=== PATIENT | male | born 1970 | race Caucasian/White ===

== ENCOUNTER 2021-04-12 10:46 | Day surgery (SDC) | payer MEDICAID, SELFPAY ==
--- NOTE | 2021-04-11 12:36 | HO.ANESPROP2 ---
Documented by User: Gwen Santizo NP 04/11/21 12:36 HPI - Anesthesia Eval Consult details Narrative: 51yo M for Upper Endoscopy [facility] Past Medical History Medical History Abnormal LFTs Anemia Celiac disease Surgical History Surgical History Hx of appendectomy Social History Social History Patient Tobacco Use Status: Former Tobacco user Use of substances other than those prescribed or required for medical reasons: No Are you DNR?: No Advance Directives: No Advance Directives Information Provided: Yes How much weight loss: 34pounds or more Meds Allergies Allergy/AdvReac Type Severity Reaction Status Date / Time No Known Allergies Allergy Mild NONE Unverified 01/14/20 14:42 Home Medications Medication Instructions Recorded Confirmed Last Taken Type No Known Home Meds 04/12/21 04/12/21 Unknown History Exam Exam Date and Time: April 11, 2021 1236 Assessment and Plan Assessment Anesthesia Assessment: Chart Reviewed Documented by User: Sung Gerardo 04/12/21 12:00 [facility] Past Medical History Medical History Abnormal LFTs Anemia Celiac disease Functional capacity: independent ambulation Family History Family history of problems with anesthesia: Yes (Father had possible delayed emergence , but patient unsure . ) Surgical History Surgical History Hx of appendectomy History of Problems with Anesthesia: No Social History Social History Patient Tobacco Use Status: Former Tobacco user Use of substances other than those prescribed or required for medical reasons: No Are you DNR?: No Advance Directives: No Advance Directives Information Provided: Yes How much weight loss: 34pounds or more Meds Allergies Allergy/AdvReac Type Severity Reaction Status Date / Time No Known Allergies Allergy Mild NONE Unverified 01/14/20 14:42 Home Medications Medication Instructions Recorded Confirmed Last Taken Type No Known Home Meds 04/12/21 04/12/21 Unknown History Exam Airway Mallampati Class: II TM Dist: >3cm Neck ROM: Full Loose/Missing/Broken Teeth: Yes (Chipped , hardware , missing . Poor dentition . ) Heart: rrr Lungs: bl breath sounds Assessment and Plan Final Anesthetic Review Family History of Problems with Anesthesia: Yes (Father had possible delayed emergence , but patient unsure . ) History of Problems with Anesthesia: No NPO: Yes ASA Class: II Final Preanesthetic Review: Meds/Allgs Chart Reviewed and Anes Risks/Benef Reviewed Patient Risk: Intermediate Procedure Risk: Intermediate Anesthetic Plan Anesthetic Plan: MAC: Disposition: Standard PACU
[2021-04-12 11:13] VITALS: BP 104/64; PULSE 81; RESP 16; TEMP 36.1; O2SAT 99; BMI 20.9
[2021-04-12] MEDS: Lactated Ringers 1,000 ML 100 ML IVCONT (11:39)
--- NOTE | 2021-04-12 12:48 | P.BOP_ITS ---
Brief Operative Note Date of Service: 04/12/21 Pre-op diagnosis: Suspected celiac disease Post-op diagnosis: other (Same, Small hiatal hernia) Procedure: EGD with biopsies Surgeon: Rigoberto Mireles Anesthesia: MAC Was an Developmental Psychologist used for this Procedure?: No Estimated blood loss (mL): 2.0 Pathology: other (A. Descending duodenum) Condition: stable Disposition: PACU
[2021-04-12 12:50] VITALS: BP 101/59; PULSE 103; RESP 20; TEMP 36.4; O2SAT 99
[2021-04-12 13:05] VITALS: BP 110/62; PULSE 76; RESP 18; TEMP 36.4; O2SAT 99
--- NOTE | 2021-04-12 14:43 | OP_ITS ---
SURGEON: Rigoberto Mireles MD INDICATIONS: The patient presents for evaluation of suspected celiac disease, based on laboratories and clinical history. Full consent was obtained from him for this, including the risks of bleeding and perforation. PREOPERATIVE DIAGNOSIS: Suspected celiac disease. POSTOPERATIVE DIAGNOSIS: PROCEDURE PERFORMED: Esophagogastroduodenoscopy with biopsies. ESTIMATED BLOOD LOSS: COMPLICATIONS: ANESTHESIA: Monitored anesthesia care. ASSISTANTS: SPECIMENS: POSTOPERATIVE DIAGNOSES: Suspected celiac disease and small hiatal hernia. DESCRIPTION OF PROCEDURE: The patient was placed in the left lateral decubitus position. The Olympus video gastroscope was passed into the posterior oropharynx and upper esophagus under direct vision. The scope was passed slowly into the distal esophagus. The gastroesophageal junction appeared normal at 38 cm. There was no sign of any esophagitis. The scope entered into the stomach. There was a minimal hiatal hernia. The scope was advanced into the pylorus and the duodenum was cannulated to the descending portion. The duodenum including the bulb was carefully inspected. There appeared to be a diminished number of folds and the mucosa was notable for what appeared to be a mosaic pattern without much in the way of any villi. Multiple biopsies were obtained in the second and third portions of duodenum. The duodenal bulb otherwise appeared normal. The scope was withdrawn back in the stomach. The gastric antrum and body appeared normal with good peristalsis. The scope was retroflexed visualizing the proximal stomach carefully, which appeared normal, without any sign of mass or ulceration. The scope was straightened and withdrawn back into the esophagus. The esophageal mucosa appeared normal. The scope was withdrawn from the patient. He tolerated the procedure well and was returned to the recovery area in stable condition. IMPRESSION: Suspected celiac disease, status post duodenal biopsies. PLAN: The results of the biopsies will be checked. He was advised to resume his gluten-free diet as he had done a 24-hour gluten challenge yesterday. He will require followup CBC and liver profile to be sure the previous abnormalities have corrected themselves, as he remains on a gluten-free diet. He will be seen in followup in the office. MD PADMINI Ramirez/GREGG / [phone]
== END 2021-04-12 13:40 | disposition home or self-care (01) ==
PROVIDERS: PCP Internal Medicine; Visit Provider Internal Medicine
PROC: 0DJ08ZZ Inspection of Upper Intestinal Tract, Via Natural or Artificial Opening Endoscopic (ICD-10-PCS; CPT 43235; principal; 2021-04-12 12:10)
DX: K90.0 Celiac disease (principal); K44.9 Diaphragmatic hernia without obstruction or gangrene; K29.80 Duodenitis without bleeding; Z87.891 Personal history of nicotine dependence
CPT/HCPCS: 43239; 88305

== ENCOUNTER → 2021-05-18 12:38 | Outpatient (BNVA) | payer MEDICAID, SELFPAY | PROVIDERS: PCP Internal Medicine; Referring Provider Internal Medicine; Visit Provider Surgery | DX: K40.90 Unilateral inguinal hernia, without obstruction or gangrene, not specified as recurrent (principal) | CPT/HCPCS: 99202 ==

== ENCOUNTER 2021-06-12 05:53 | Day surgery (SDC) | payer MEDICAID, SELFPAY ==
--- NOTE | 2021-06-09 10:39 | HO.ANESPROP2 ---
Documented by User: Gwen Santizo NP 06/09/21 10:39 HPI - Anesthesia Eval Consult details Narrative: 51yo M for Left Hernia Repair Inguinal with Mesh PMFSH Active Problems Active Problems: All Active Problems (Updated 05/18/21 @ 13:10 by Deejay Barakat MD) Left inguinal hernia (Acute) Past Medical History Medical History Abnormal LFTs Anemia Celiac disease Family History Family history of problems with anesthesia: Yes (Father had possible delayed emergence , but patient unsure . ) Surgical History Surgical History H/O endoscopy Hx of appendectomy History of Problems with Anesthesia: No Social History Social History Alcohol intake: never Patient Tobacco Use Status: Former Tobacco user Use of substances other than those prescribed or required for medical reasons: No Are you DNR?: No Advance Directives: No Advance Directives Information Provided: Yes Meds Allergies Allergy/AdvReac Type Severity Reaction Status Date / Time No Known Allergies Allergy Mild NONE Unverified 05/18/21 12:59 Home Medications Medication Instructions Recorded Confirmed Last Taken Type multivitamin 1 tab PO DAILY 06/05/21 06/05/21 Unknown History Exam Exam Date and Time: June 09, 2021 1039 Assessment and Plan Assessment Anesthesia Assessment: Chart Reviewed Final Anesthetic Review Family History of Problems with Anesthesia: Yes (Father had possible delayed emergence , but patient unsure . ) History of Problems with Anesthesia: No Documented by User: Blanche Lyle MD 06/12/21 08:08 PMFSH Past Medical History Medical History Abnormal LFTs Anemia Celiac disease Surgical History Surgical History H/O endoscopy Hx of appendectomy Social History Social History Alcohol intake: never Patient Tobacco Use Status: Former Tobacco user Use of substances other than those prescribed or required for medical reasons: No Are you DNR?: No Advance Directives: No Advance Directives Information Provided: Yes Meds Allergies Allergy/AdvReac Type Severity Reaction Status Date / Time No Known Allergies Allergy Mild NONE Unverified 05/18/21 12:59 Home Medications Medication Instructions Recorded Confirmed Last Taken Type multivitamin 1 tab PO DAILY 06/05/21 06/05/21 Unknown History Exam Airway Mallampati Class: III TM Dist: >3cm Neck ROM: Full Loose/Missing/Broken Teeth: No Heart: RRR Lungs: CTA Assessment and Plan Assessment Anesthesia Assessment: Anesthesia Plan Discussed Final Anesthetic Review NPO: Yes ASA Class: II Final Preanesthetic Review: Meds/Allgs Chart Reviewed, Consent Obtained/Reviewed and Anes Risks/Benef Reviewed Patient Risk: Low Procedure Risk: Low Anesthetic Plan Anesthetic Plan: GA Disposition: Standard PACU
[2021-06-12 06:15] VITALS: BP 123/68; PULSE 69; RESP 16; TEMP 36.2; O2SAT 98; BMI 23.7
[2021-06-12] MEDS: Lactated Ringers 1,000 ML 100 ML IVCONT (06:31)
--- NOTE | 2021-06-12 07:18 | MHC.SHP ---
Pre-Procedural Eval Section A Date of Service: 06/12/21 The patient is an INPATIENT: No Changes since office visit: Yes Patient answered all questions; No Cold of Flu in the past 2 weeks, No New Medical Problems and No Changes in Medication The History & Physical has been completed within 30 days and I have reviewed it.: Yes Section B Chief Complaint: Inguinal Hernia Left Allergies: Allergies Allergy/AdvReac Type Severity Reaction Status Date / Time No Known Allergies Allergy Mild NONE Unverified 05/18/21 12:59 Plan Diagnosis/Plan: Unchanged I have reviewed the history and physical and performed a pertinent physical examination on my patient. No changes have occurred unless specified.
--- NOTE | 2021-06-12 08:38 | P.OP_ITS ---
Operative Note Operative Note Date of Service: 06/12/21 Narrative: Preoperative diagnosis: Left inguinal herna , skin lesion left groin Postoperative diagnosis: Same Procedure: Repair of left inguinal hernia, excision of skin lesion left groin Surgeon: Deejay Barakat MD Warehouse Loader: Judith Davalos PA-C Anesthesia: General LMA Indications for procedure: 51-year-old male patient presenting with a painful left inguinal hernia which increases in size with lifting and coughing. On examination he has a reducible left inguinal hernia with minimal pain to deep palpation. Also noted is a raised skin lesion below the pubis suggestive of condyloma. He has requested excision of this lesion. Operative findings:. indirect sliding left inguinal hernia Specimen: hernia sac, skin lesion left groin Estimated blood loss: 5 mL Complications: none Procedure details: Patient was brought to the OR and placed in a supine position. After administering general anesthesia the patient's abdomen was prepped with ChloraPrep and draped in a sterile fashion. A surgical time-out was called the consent confirmed. Patient received preoperative antibiotics and Venodyne boots were in place. Local anesthesia consisting of 0.5% Sensorcaine with epinephrine was infiltrated over the left inguinal ligament. Incision was then made in oblique fashion over the inguinal ligament. This carried out through subcutaneous tissue past Pallavi's fashion up to the external oblique aponeurosis. Additional local was infiltrated below the external oblique aponeurosis. This was then incised with a scalpel wide with the Metzenbaum scissors. Spermatic cord was then dissected free from the surrounding inguinal canal and retracted using a Christen drain. The floor of the inguinal canal was examined and no direct hernia was identified. Fibers of the cremasteric muscle were then and an indirect sac was identified. This was dissected down to the internal ring. The sac was then opened and the contents reduced. The sac was noted contain a sliding component which was reduced into the abdominal cavity. The sac was ligated above the sliding component using 0 Polysorb suture. The sac was then divided above this. This was sent to the specimen. The sac was then reduced into the abdominal cavity and plicated to the internal oblique aponeurosis using the same suture with a free needle. Attention was then directed to the direct space which was divided between Allis clamps. The preperitoneal space was then created. This was opened further using an open Ray-Pascale sponge. A large Extended PHS mesh was then obtained. The circular underlay was placed into the preperitoneal space and deployed. The overlay was then secured to the pubic tubercle, conjoined tendon, and shelving edge of the inguinal ligament using interrupted 0 Polysorb sutures. A slit was made in the mesh and the mesh were wrapped around the spermatic cord at the internal ring. This was then secured to the shelving edge of the inguinal ligament using the 0 Polysorb suture. This was felt to be loose enough to allow the tip of an index finger to pass. Wounds were checked for hemostasis. Wounds were irrigated with saline solution and suctioned dry. External oblique aponeurosis was then closed using a running 2 0 Polysorb suture. Pallavi's fascia and dermis reapproximated using interrupted 3- 0 Polysorb sutures. Skin was then closed using a running subcuticular 4-0 Poly sorb suture. The left inguinal skin lesion was excised using scalpel and the skin closed using interrupted 4-0 nylon sutures. Steri-Strips 2 x 2 gauze and Tegaderm were then applied. The patient tolerated the procedure well. Sponge, instrument, needle counts reported as correct. Patient was transferred to PACU in stable condition.
[2021-06-12 08:52] VITALS: BP 119/61; PULSE 82; RESP 18; TEMP 36.4; O2SAT 100
[2021-06-12 08:57] VITALS: BP 114/63; PULSE 87; RESP 18; O2SAT 100
[2021-06-12 09:02] VITALS: BP 123/67; PULSE 72; RESP 18; O2SAT 95
[2021-06-12 09:07] VITALS: BP 119/59; PULSE 73; RESP 18; O2SAT 99
[2021-06-12 09:22] VITALS: BP 125/72; PULSE 67; RESP 18; TEMP 36.5; O2SAT 100
== END 2021-06-12 10:00 | disposition home or self-care (01) ==
PROVIDERS: PCP Internal Medicine; Visit Provider Surgery
PROC: (CPT 49525; principal; 2021-06-12 07:30)
DX: K40.90 Unilateral inguinal hernia, without obstruction or gangrene, not specified as recurrent (principal); D22.5 Melanocytic nevi of trunk; D64.9 Anemia, unspecified; Z87.19 Personal history of other diseases of the digestive system; Z87.891 Personal history of nicotine dependence
CPT/HCPCS: 49525; 11402; 88302; 88305; C1781; J0690; J1100; J1885; J2250; J2405; J3010

== ENCOUNTER → 2021-06-20 13:22 | Outpatient (BNVA) | payer MEDICAID, SELFPAY | PROVIDERS: PCP Internal Medicine; Referring Provider Internal Medicine; Visit Provider Surgery | DX: Z48.815 Encounter for surgical aftercare following surgery on the digestive system (principal); Z87.19 Personal history of other diseases of the digestive system | CPT/HCPCS: 99212 ==

== ENCOUNTER → 2021-07-18 13:13 | Outpatient (BNVA) | payer MEDICAID, SELFPAY | PROVIDERS: PCP Internal Medicine; Visit Provider Surgery | DX: Z09 Encounter for follow-up examination after completed treatment for conditions other than malignant neoplasm (principal); Z87.19 Personal history of other diseases of the digestive system | CPT/HCPCS: 99212 ==

== ENCOUNTER 2021-10-12 11:46 | Outpatient (REF) | payer MEDICAID, SELFPAY ==
--- NOTE | ~2021-10-12 | XR_ITS ---
EXAMINATION: XR FOOT, LEFT CLINICAL INFORMATION: Left foot pain COMPARISON: None TECHNIQUE: AP, lateral, and oblique views of the left foot. FINDINGS: There is a horizontal stress fracture of the second metatarsal involving the proximal diaphysis. Some surrounding periosteal reaction is seen. No other fractures are seen. Mild hallux valgus is present. XR/XR foot LT min 3V IMPRESSION: Stress fracture second metatarsal
== END 2021-10-12 11:47 | disposition home or self-care (01) ==
LOC: HO.HMGCX 11:46
PROVIDERS: PCP Internal Medicine; Visit Provider Internal Medicine
DX: M84.375A Stress fracture, left foot, initial encounter for fracture (principal)
CPT/HCPCS: 73630

== ENCOUNTER 2022-06-13 14:08 | Outpatient (REF) | payer MEDICAID, SELFPAY ==
--- NOTE | ~2022-06-13 | XR_ITS ---
EXAMINATION: XR HIP, LEFT CLINICAL INFORMATION: Reason for Exam LT HIP PAIN, R/O DJD, LOM COMPARISON: None TECHNIQUE: Two views of the hip. FINDINGS: No acute fracture or dislocation. Hip joint space is maintained. Soft tissues are unremarkable. XR/XR hip LT min 2V IMPRESSION: No acute osseous abnormality.
== END 2022-06-13 14:09 | disposition home or self-care (01) ==
LOC: HO.HMGCX 14:08
PROVIDERS: Visit Provider Internal Medicine
DX: M25.552 Pain in left hip (principal)
CPT/HCPCS: 73502

== ENCOUNTER 2023-01-16 06:09 | Day surgery (SDC) | payer MEDICAID, SELFPAY ==
--- NOTE | 2023-01-15 08:53 | HO.ANESPROP2 ---
HPI - Anesthesia Eval Consult details Narrative: 52yo M for Colonoscopy PMFSH Active Problems Active Problems: All Active Problems (Updated 06/12/21 @ 08:32 by Deejay Barakat MD) Left inguinal hernia (Acute) S/P left inguinal hernia repair (Acute 06/12/21) Past Medical History Medical History (Updated 01/15/23 @ 07:55 by Kira Sarmiento RN) Gout Abnormal LFTs Celiac disease Anemia Family History Family history of problems with anesthesia: Yes (Father had possible delayed emergence , but patient unsure . ) Surgical History Surgical History S/P left inguinal hernia repair (06/12/21) H/O endoscopy Hx of appendectomy History of Problems with Anesthesia: No Social History Social History Alcohol intake: never Patient Tobacco Use Status: Former Tobacco user Meds Allergies Allergy/AdvReac Type Severity Reaction Status Date / Time No Known Allergies Allergy Mild NONE Unverified 07/18/21 13:35 Home Medications Medication Instructions Recorded Confirmed Last Taken Type multivitamin 1 tab PO DAILY 06/05/21 06/20/21 Unknown History allopurinol 300 mg tablet 300 mg PO DAILY 01/15/23 01/15/23 Unknown History apple cider vinegar PO 01/15/23 Unknown History Exam Exam Date and Time: January 15, 2023 0853 Assessment and Plan Assessment Anesthesia Assessment: Chart Reviewed Final Anesthetic Review Family History of Problems with Anesthesia: Yes (Father had possible delayed emergence , but patient unsure . ) History of Problems with Anesthesia: No
[2023-01-16 06:41] VITALS: BP 144/84; PULSE 82; RESP 20; TEMP 36.6; O2SAT 98
[2023-01-16 06:43] VITALS: BMI 27.8
[2023-01-16] MEDS: Lactated Ringers 1,000 ML 100 ML IVCONT (07:00)
--- NOTE | 2023-01-16 07:43 | P.CONAN_ITS ---
[facility] Active Problems Active Problems: All Active Problems (Updated 01/15/23 @ 07:55 by Kira Sarmiento RN) Left inguinal hernia (Acute) S/P left inguinal hernia repair (Acute 06/12/21) Past Medical History Medical History Gout Abnormal LFTs Celiac disease Anemia Functional capacity: independent ambulation Family History Family history of problems with anesthesia: Yes (Father had possible delayed emergence , but patient unsure . ) Surgical History Surgical History S/P left inguinal hernia repair (06/12/21) H/O endoscopy Hx of appendectomy History of Problems with Anesthesia: No Social History Social History Alcohol intake: never Patient Tobacco Use Status: Former Tobacco user Are you DNR?: No Advance Directives: No Advance Directives Information Provided: Yes Meds Allergies Allergy/AdvReac Type Severity Reaction Status Date / Time No Known Allergies Allergy Mild NONE Unverified 07/18/21 13:35 Active Medications: Current Medications Lactated Ringer's (Lr) 1,000 mls @ 100 mls/hr IVCONT .Q10H SARAI Last Admin: 01/16/23 07:00 Dose: 100 mls/hr Sodium Biphosphate/Sodium Phosphate (Sodium Phosphate,[place]-Dibasic 133 Ml Enema) 133 ml NM ONCE PRN PRN Reason: Poor Colonoscopy Prep Results Home Medications Medication Instructions Recorded Confirmed Last Taken Type multivitamin 1 tab PO DAILY 06/05/21 06/20/21 Unknown History allopurinol 300 mg tablet 300 mg PO DAILY 01/15/23 01/15/23 Unknown History apple cider vinegar PO 01/15/23 Unknown History Exam Exam Date and Time: January 16, 2023 0743 Height,Weight and Vital Signs: Height 6 ft Weight 92.986 kg Last Vital Signs Temp 98 F 01/16/23 06:41 Pulse 82 01/16/23 06:41 Resp 20 01/16/23 06:41 BP 144/84 H 01/16/23 06:41 Pulse Ox 98 01/16/23 06:41 O2 Del Method Room Air 01/16/23 06:41 Airway Mallampati Class: II TM Dist: >3cm Neck ROM: Full Heart: RRR Lungs: CTA Assessment and Plan Final Anesthetic Review Family History of Problems with Anesthesia: Yes (Father had possible delayed emergence , but patient unsure . ) History of Problems with Anesthesia: No ASA Class: II Final Preanesthetic Review: Meds/Allgs Chart Reviewed, Consent Obtained/Reviewed and Anes Risks/Benef Reviewed Patient Risk: Low Procedure Risk: Low Anesthetic Plan Anesthetic Plan: MAC: Disposition: Standard PACU
[2023-01-16 08:15] VITALS: BP 98/50; PULSE 85; RESP 20; TEMP 36.3; O2SAT 94
--- NOTE | 2023-01-16 08:22 | PM.OP ---
Brief Operative Note Date of Service: 01/16/23 Pre-op diagnosis: Screening Post-op diagnosis: other (Colon Polyp) Procedure: Colonoscopy to the cecum and TI with biopsy/removal of polyp Surgeon: Rigoberto Mirlees Anesthesia: MAC Was an Waiter/Waitress Second Class used for this Procedure?: No Estimated blood loss (mL): 2.0 Pathology: other (A. Polyp at 30cm) Condition: stable Disposition: PACU
[2023-01-16 08:30] VITALS: BP 101/47; PULSE 87; RESP 20; TEMP 36.9; O2SAT 96
--- NOTE | 2023-01-16 08:35 | OP_ITS ---
DATE OF SERVICE: 01/16/2023 SURGEON: Rigoberto Mireles MD INDICATIONS: The patient presents for evaluation of colorectal cancer screening. Full consent has been obtained from him for this, including risks of bleeding and perforation. PREOPERATIVE DIAGNOSIS: Colorectal cancer screening. POSTOPERATIVE DIAGNOSIS: Colorectal cancer screening, small colon polyp, diverticulosis, and internal hemorrhoids. PROCEDURE PERFORMED: Colonoscopy to the cecum and terminal ileum with biopsy and removal of polyp. ESTIMATED BLOOD LOSS: COMPLICATIONS: ANESTHESIA: Monitored anesthesia care. ASSISTANTS: SPECIMENS: DESCRIPTION OF PROCEDURE: The patient was placed in the left lateral decubitus position. The digital rectal exam revealed no abnormalities. The Olympus video pediatric colonoscope was entered into the rectum and advanced easily to the cecum. Once in the cecum I did identify cecal pouch with appendiceal orifice and a normal-appearing ileocecal valve. The terminal ileum was cannulated and appeared normal. The scope was withdrawn back in the colon. The entire cecum and the ileocecal valve appeared normal. The scope was slowly withdrawn assessing all mucosal surfaces carefully. Preparation was excellent. At 30 cm was approximately 4 mm polyp, which was biopsied and completely removed with cold biopsy forceps. I did not visualize any other polyps, colitis, nor angiodysplasia. There was a mild amount of sigmoid diverticulosis. In the rectum, scope was retroflexed visualizing small internal hemorrhoids, but no other pathology. The rectal mucosa appeared normal. The scope was straightened and withdrawn from the patient. He tolerated the procedure well and was returned to recovery area in stable condition. IMPRESSION: 1. Small colon polyp. 2. Diverticulosis. 3. Internal hemorrhoids. PLAN: The results of the biopsy will be checked. If this is a tubular adenoma, I would recommend a followup coloscopy in 5 years. If it is only hyperplastic, I would recommend a followup coloscopy in 10 years. He will otherwise see me on a p.r.n. basis. MD PADMINI Ramirez/GREGG / [id number] MTDD
--- NOTE | 2023-01-16 10:40 | HO.POSTANES ---
Post Anesthesia Evaluation Post Anesthesia Evaluation Date of Service: 01/16/23 Vital Signs: Vital Signs Temp Pulse Resp BP Pulse Ox O2 Del Method 01/16/23 08:30 98.4 F 87 20 101/47 L 96 Room Air 01/16/23 08:15 97.4 F 85 20 98/50 L 94 Room Air 01/16/23 06:41 98 F 82 20 144/84 H 98 Room Air Anesthesia: Monitored Mental Status: Awake Pain Control: Satisfactory Nausea/Vomiting: None Hydration: Adequate Anesthesia-Related Issues: No Anes. Related Issues
== END 2023-01-16 09:13 | disposition home or self-care (01) ==
PROVIDERS: PCP Internal Medicine; Visit Provider Internal Medicine
PROC: 0DJD8ZZ Inspection of Lower Intestinal Tract, Via Natural or Artificial Opening Endoscopic (ICD-10-PCS; CPT 45378; principal; 2023-01-16 07:30)
DX: Z12.11 Encounter for screening for malignant neoplasm of colon (principal); K51.40 Inflammatory polyps of colon without complications; K57.30 Diverticulosis of large intestine without perforation or abscess without bleeding; K64.8 Other hemorrhoids; K90.0 Celiac disease; K86.81 Exocrine pancreatic insufficiency; D64.9 Anemia, unspecified; M10.9 Gout, unspecified; Z79.899 Other long term (current) drug therapy; Z87.891 Personal history of nicotine dependence
CPT/HCPCS: 45380; 88305